=== PATIENT | male | born 1975 | race Caucasian/White ===

== ENCOUNTER 2017-04-21 15:00 | Emergency (ER) | payer OTHER ==
--- NOTE | 2017-04-21 15:00 | NUR ---
CALLED - NO ANSWER
--- NOTE | 2017-04-21 15:06 | NUR ---
Patient left without being seen by ER Physician
--- NOTE | 2017-04-21 15:06 | NUR ---
CALLED, NO ANSWER
== END 2017-04-21 15:07 | disposition left against medical advice (07) ==
LOC: ER 15:02
DX: Z53.21 Procedure and treatment not carried out due to patient leaving prior to being seen by health care provider (principal)

== ENCOUNTER 2017-06-19 23:59 | Emergency (ER) | payer OTHER ==
[~2017-06-19] VITALS: Ht 190.5 cm; Wt 81.6 kg
[2017-06-20 00:28] VITALS: BP 153/91
[2017-06-20] MEDS ORDERED: IBUPROFEN 400 MG TABLET ONE (04:17)
[2017-06-20] MEDS ORDERED: IBUPROFEN 400 MG TABLET PO ONE (04:30)
== END 2017-06-20 04:21 | disposition home or self-care (01) ==
LOC: ER 06-20 00:01
DX: M25.561 Pain in right knee (principal)
CPT/HCPCS: 99283; A4606; Z7610

== ENCOUNTER 2020-11-23 22:44 | Emergency (ER) | payer OTHER ==
[~2020-11-23] VITALS: Ht 188 cm; Wt 81.6 kg
[2020-11-23 22:44] VITALS: BP 119/70
[2020-11-23] MEDS ORDERED: DIPH103G TP (23:00)
[2020-11-23] MEDS ORDERED: KETO10TA2 PO (23:00)
== END 2020-11-23 23:30 | disposition home or self-care (01) ==
LOC: ER 22:44
DX: T63.441A Toxic effect of venom of bees, accidental (unintentional), initial encounter (principal); L50.9 Urticaria, unspecified; Y92.89 Other specified places as the place of occurrence of the external cause

== ENCOUNTER 2023-12-28 20:57 | Emergency (ER) | payer MEDICAID, OTHER ==
[~2023-12-28 20:57] MED LIST: DIPH103G TP; KETO10TA2 PO
== END 2023-12-28 23:44 | disposition left against medical advice (07) ==
LOC: ER 21:00
DX: Z00.00 Encounter for general adult medical examination without abnormal findings (principal); Z53.21 Procedure and treatment not carried out due to patient leaving prior to being seen by health care provider